=== PATIENT | female | born 1995 | race Caucasian/White ===

== ENCOUNTER 2018-01-02 12:13 | Emergency (ER) | payer OTHER ==
[2018-01-02 12:25] VITALS: BMI 16.4
[2018-01-02 12:26] VITALS: RESP 16; TEMP 98.3
[2018-01-02] MEDS ORDERED: Amoxicillin-Clav 875-125 mg Tab PO STA (12:46)
--- NOTE | 2018-01-02 12:51 | C.PDOC ---
History Of Present Illness 22 y/o female comes in for evaluation of a sore throat since this morning. Associated with right-sided neck swelling and pain. Otherwise patient denies fever, chills, headache, drooling, trismus, earache, cough, abdominal pain, nausea, or vomiting, back pain, UTI sx, denies recent travel or known sick contact. Time Seen by Provider: 01/02/18 12:28 Chief Complaint (Nursing): ENT Problem History Per: Patient History/Exam Limitations: None Onset/Duration Of Symptoms: Hrs Current Symptoms Are (Timing): Still Present Past Medical History Reviewed: Historical Data, Nursing Documentation, Vital Signs Vital Signs: Last Vital Signs Temp 98.3 F 01/02/18 12:26 Pulse 53 L 01/02/18 12:26 Resp 16 01/02/18 12:26 BP 112/63 01/02/18 12:26 Pulse Ox 100 01/02/18 12:54 Family History: States: No Known Family Hx - Social History Hx Tobacco Use: Yes Hx Alcohol Use: No Hx Substance Use: No - Immunization History Hx Tetanus Toxoid Vaccination: No Hx Influenza Vaccination: No Hx Pneumococcal Vaccination: No Review Of Systems Except As Marked, All Systems Reviewed And Found Negative. Constitutional: Negative for: Fever, Chills ENT: Positive for: Throat Pain. Negative for: Ear Pain, Other (drooling) Respiratory: Negative for: Cough Gastrointestinal: Negative for: Nausea, Vomiting, Abdominal Pain Musculoskeletal: Positive for: Neck Pain (and swelling) Neurological: Negative for: Headache Physical Exam - Physical Exam Appears: Well, Non-toxic, No Acute Distress Skin: Normal Color, Warm, No Rash, No Ecchymosis Head: Normacephalic Eye(s): bilateral: PERRL Ear(s): Bilateral: Normal Nose: No Flaring, No Discharge Oral Mucosa: Moist, No Drooling, No Trismus Tongue: Normal Appearing Lips: Normal Appearing Throat: Erythema (Pharyngeal edema and erythema), Exudate (Tonsillar enlargement with scant exudate on the right), No Drooling Neck: Trachea Midline, No Midline Cervical Tenderness, No Paracervical Tenderness, Supple Chest: Symmetrical, No Deformity, No Tenderness Cardiovascular: Rhythm Regular, No Murmur Respiratory: No Decreased Breath Sounds, No Rales, No Rhonchi, No Wheezing Gastrointestinal/Abdominal: Soft, No Tenderness, No Distention, No Guarding Back: No CVA Tenderness Extremity: Normal ROM, No Pedal Edema Extremity: Bilateral: Atraumatic, Normal Color And Temperature, Normal ROM Neurological/Psych: Oriented x3, Normal Speech, Normal Cranial Nerves Gait: Steady ED Course And Treatment O2 Sat by Pulse Oximetry: 100 (RA) Pulse Ox Interpretation: Normal Progress Note: Patient given initial dose of PO Augmentin and Motrin in the ED. astic on floor". On re-eval, pt is afebrile, hemodynamicaly stable. Non- toxic. Tolerate Po well in ED. PulsEOx 100% RA. neck: Supple, (-) meningeal sign. ENT: exam c/w acute pharyngitis, mild Right anterior cervical lymphodenopathy. uvual midline, no edema. Lungs: CTA B/L, BS equal B/L. CVS: ( +)S1S2, reg. Abd: benign. Neurologicaly intact. Pt advised on course of ds. ref. to F/U with PMD, ENT in 2-3 days for re-eavl. return if any new changes. Disposition Counseled Patient/Family Regarding: Diagnosis, Need For Followup, Rx Given - Disposition Referrals: [facility] [Outside] Disposition: HOME/ ROUTINE Disposition Time: 12:46 Condition: STABLE Additional Instructions: Take medication as prescribed Encourage fluids Warm salty water throat gurgles daily Follow up with ENT in 2-3 days for re-evaluation. return to ED if any worsening or new changes. 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 - Scribe Statement The provider has reviewed the documentation as recorded by the Scribe (Kitty Fishman) All medical record entries made by the Scribe were at my direction and personally dictated by me. I have reviewed the chart and agree that the record accurately reflects my personal performance of the history, physical exam, medical decision making, and the department course for this patient. I have also personally directed, reviewed, and agree with the discharge instructions and disposition.
[2018-01-02] MEDS ORDERED: Amoxicillin-Clav 875-125 mg Tab PO ONE (12:55)
[2018-01-02 13:16] VITALS: BP 110/68; PULSE 60; O2SAT 99
== END 2018-01-02 13:15 | disposition home or self-care (01) ==
LOC: C.ER 12:13
DX: J02.9 Acute pharyngitis, unspecified (principal)